=== PATIENT | female | born 1995 | race Caucasian/White ===

== ENCOUNTER 2018-05-21 09:50 | Emergency (ER) | payer MEDICAID, OTHER ==
[~2018-05-21] VITALS: Ht 172.7 cm; Wt 117.9 kg
[~2018-05-21 09:50] MED LIST: IMETREX; TOPAMAX
[2018-05-21 10:01] VITALS: BP 139/67
[2018-05-21] MEDS ORDERED: MORPHINE SULFATE 4 MG/ML SYR IVP ONE ×2 (10:20→11:15)
[2018-05-21] MEDS ORDERED: ONDANSETRON 4 MG/2 ML VIAL IVP ONE (10:20)
[2018-05-21] MEDS ORDERED: NACL 0.9% 500 ML IV ONE (10:20)
[2018-05-21] MEDS ORDERED: CYCLOBENZAPRINE 10 MG TAB PO ONE ×2 (10:20→11:15)
[2018-05-21] MEDS ORDERED: MORPHINE SULFATE 2 MG/ML SYR ONE ×2 (10:28→11:59)
[2018-05-21] MEDS ORDERED: predniSONE 20 MG TAB PO ONE (11:20)
[2018-05-21] MEDS ORDERED: fentaNYL 0.05 MG/ML VIAL IVP ONE (11:25)
[2018-05-21 12:31] VITALS: BP 122/64
[2018-05-21] MEDS ORDERED: diphenhydrAMINE 2% 30 GM TUBE TP SCH (13:00)
== END 2018-05-21 13:36 | disposition home or self-care (01) ==
LOC: MED 09:50
DX: M54.42 Lumbago with sciatica, left side (principal); M25.531 Pain in right wrist; M51.36 Other intervertebral disc degeneration, lumbar region; Z98.84 Bariatric surgery status
CPT/HCPCS: 96374; 96375; 96376; 99284; J2270; J2405; J3010; J7512